=== PATIENT | male | born 1950 | race Two or more races ===

== ENCOUNTER 2023-07-30 15:50 | Inpatient (IN) | payer MEDICARE, OTHER ==
[~2023-07-30] VITALS: Ht 175.3 cm; Wt 73.9 kg
[2023-07-30] MEDS ORDERED: IV NORMAL SALINE 1000 ML BAG IV ONE (16:15)
[2023-07-30 16:27] LABS: BASOPHILS % (AUTO) 0.6 % (0.0-2.0); EOSINOPHILS % (AUTO) 0.3 % (0.0-7.0); HEMATOCRIT 25.4 % (36.7-47.1); HEMOGLOBIN 8.3 g/dL (12.5-16.3); LYMPHOCYTES # (AUTO) 1.5 K/uL (0.8-4.8); LYMPHOCYTES % (AUTO) 19.9 % (20.5-51.5); MEAN CORPUSCULAR HEMOGLOBIN 30.5 uug (23.8-33.4); MEAN CORPUSCULAR HGB CONC 33 g/dL (32.5-36.3); MEAN CORPUSCULAR VOLUME 93.1 fL (73.0-96.2); MONOCYTES # (AUTO) 0.5 K/uL (0.1-1.30); MONOCYTES % (AUTO) 7.3 % (0.0-11.0); NEUTROPHILS # (AUTO) 5.3 K/uL (1.8-8.9); NEUTROPHILS % (AUTO) 71.9 % (38.5-71.5); PLATELET COUNT (AUTO) 255 K/uL (152-348); RED BLOOD CELL COUNT(AUTO) 2.73 MIL/uL (4.06-5.63); RED CELL DISTRIBUTION WIDTH 15.2 % (12.1-16.2); WHITE BLOOD COUNT (AUTO) 7.3 K/uL (3.6-10.2)
[2023-07-30 16:41] LABS: DIFFERENTIAL COMMENT 1
[2023-07-30 16:56] LABS: CALCIUM 8.6 mg/dL (8.5-10.1); CARBON DIOXIDE 17 mmol/L (21-32); CHLORIDE 104 mmol/L (98-107); CREATININE 4.5 mg/dL (0.6-1.3); GLUCOSE 220 mg/dL (74-106); NT-PRO BNP 5588 pg/mL (0-125); POTASSIUM 3.6 mmol/L (3.5-5.1); SODIUM SERUM 137 mmol/L (136-145)
[2023-07-30 16:59] LABS: UREA NITROGEN, BLOOD 82 mg/dL (7-18)
[2023-07-30] MEDS ORDERED: DEXTROSE 50% 50 ML DISP.SYRIN IV PRN (18:15)
[2023-07-30] MEDS ORDERED: ONDANSETRON 4 MG/2 ML VIAL IV PRN (18:15)
[2023-07-30] MEDS ORDERED: IV NS 1000 ML 1,000 ML IV PRN (18:15)
[2023-07-30 21:00] VITALS: BP 161/74; TEMP 97.9; O2SAT 99
[2023-07-30] MEDS: BLOOD SUGAR DIAGNOSTIC 1 EACH STRIP VI SCH (21:57)
[2023-07-30] MEDS: ACETAMINOPHEN 325 MG TABLET PO PRN (23:08)
[2023-07-30] MEDS: INSULIN REGULAR, HUMAN 300 UNIT/3 ML VIAL SQ PRN (23:18)
[2023-07-30] MEDS ORDERED: PANTOPRAZOLE SODIUM 40 MG VIAL IV ONE (23:30)
[2023-07-30] MEDS ORDERED: CALCIUM CARBONATE 500 MG TAB.CHEW PO PRN (23:30)
[2023-07-31 04:00] VITALS: BP 131/66; TEMP 98; O2SAT 94
[2023-07-31] MEDS: PANTOPRAZOLE SODIUM 40 MG TABLET.DR PO SCH (06:02)
[2023-07-31] MEDS: BLOOD SUGAR DIAGNOSTIC 1 EACH STRIP VI SCH ×4 (06:59→21:00)
[2023-07-31 07:55] LABS: BASOPHILS % (AUTO) 0.9 % (0.0-2.0); EOSINOPHILS # (AUTO) 0.1 K/uL (0.0-0.7); EOSINOPHILS % (AUTO) 2.5 % (0.0-7.0); HEMATOCRIT 24.4 % (36.7-47.1); HEMOGLOBIN 8.2 g/dL (12.5-16.3); LYMPHOCYTES # (AUTO) 1.7 K/uL (0.8-4.8); LYMPHOCYTES % (AUTO) 32.5 % (20.5-51.5); MEAN CORPUSCULAR HEMOGLOBIN 31.3 uug (23.8-33.4); MEAN CORPUSCULAR HGB CONC 34 g/dL (32.5-36.3); MEAN CORPUSCULAR VOLUME 93.2 fL (73.0-96.2); MONOCYTES # (AUTO) 0.5 K/uL (0.1-1.30); MONOCYTES % (AUTO) 9.3 % (0.0-11.0); NEUTROPHILS # (AUTO) 2.9 K/uL (1.8-8.9); NEUTROPHILS % (AUTO) 54.8 % (38.5-71.5); PLATELET COUNT (AUTO) 236 K/uL (152-348); RED BLOOD CELL COUNT(AUTO) 2.61 MIL/uL (4.06-5.63); WHITE BLOOD COUNT (AUTO) 5.4 K/uL (3.6-10.2)
[2023-07-31 08:16] LABS: THYROID STIMULATING HORMONE 2.233 mIU/mL (0.358-3.740)
[2023-07-31 08:18] LABS: CALCIUM 8.4 mg/dL (8.5-10.1); CARBON DIOXIDE 17 mmol/L (21-32); CHLORIDE 108 mmol/L (98-107); CREATININE 4.3 mg/dL (0.6-1.3); GLUCOSE 144 mg/dL (74-106); MAGNESIUM 2.1 mg/dL (1.8-2.4); PHOSPHOROUS 4.5 mg/dL (2.5-4.9); POTASSIUM 3.7 mmol/L (3.5-5.1); SODIUM SERUM 139 mmol/L (136-145); UREA NITROGEN, BLOOD 76 mg/dL (7-18)
[2023-07-31 08:35] LABS: DIFFERENTIAL COMMENT 1
[2023-07-31 11:44] VITALS: BP 137/89; TEMP 97.6; O2SAT 98
[2023-07-31] MEDS ORDERED: ACET325C7 PO (15:15)
[2023-07-31] MEDS ORDERED: ATOR20TA PO (15:16)
[2023-07-31] MEDS ORDERED: CLON0.1T PO (15:17)
[2023-07-31] MEDS ORDERED: CITA10SO3 PO (15:17)
[2023-07-31] MEDS ORDERED: DOCU-141 PO (15:22)
[2023-07-31] MEDS ORDERED: FERR-56 PO (15:23)
[2023-07-31] MEDS ORDERED: HEPA500034 SQ (15:24)
[2023-07-31] MEDS ORDERED: HYDR-894 PO (15:25)
[2023-07-31] MEDS ORDERED: INSU100V42 SQ (15:26)
[2023-07-31] MEDS ORDERED: INSU100V7 SQ (15:31)
[2023-07-31 15:35] VITALS: BP 145/83; TEMP 97.8; O2SAT 97
[2023-07-31] MEDS ORDERED: MAGN400O6 PO (15:41)
[2023-07-31] MEDS ORDERED: MELA3CAP2 PO (15:42)
[2023-07-31] MEDS ORDERED: TAMS-3 PO (15:43)
[2023-07-31] MEDS ORDERED: POLY17PO4 PO (15:44)
[2023-07-31] MEDS ORDERED: CALC500T89 PO (15:45)
[2023-07-31] MEDS ORDERED: ONDA-104 PO (15:54)
[2023-07-31] MEDS ORDERED: MIRT-73 PO (15:55)
[2023-07-31] MEDS ORDERED: Medication Not On Formulary EA (Acetaminophen (Tylenol) 650 MG) PO PRN (16:30)
[2023-07-31] MEDS ORDERED: DOCUSATE SODIUM 100 MG CAPSULE PO PRN (16:30)
[2023-07-31] MEDS ORDERED: CITALOPRAM HYDROBROMIDE 10 MG PO PRN (16:30)
[2023-07-31] MEDS: FERROUS SULFATE 325 MG TABEC PO SCH (17:36)
[2023-07-31] MEDS: CLONIDINE HCL 0.1 MG TABLET PO SCH (17:37)
[2023-07-31] MEDS: ASPIRIN EC 81 MG TABLET.DR PO SCH (17:37)
[2023-07-31] MEDS: CITALOPRAM 10 MG TABLET PO SCH (17:39)
[2023-07-31] MEDS: INSULIN REGULAR, HUMAN 300 UNIT/3 ML VIAL SQ PRN ×2 (17:42→23:36)
[2023-07-31] MEDS: NITROGLYCERIN 0.4 MG/TAB BOTTLE SL PRN ×2 (19:00→20:59)
[2023-07-31 19:15] VITALS: BP 147/80
[2023-07-31 19:20] VITALS: BP 128/76
[2023-07-31] MEDS: TAMSULOSIN HCL 0.4 MG CAP.SR.24H PO SCH (23:29)
[2023-07-31] MEDS: ATORVASTATIN 20 MG TABLET PO SCH (23:29)
[2023-07-31] MEDS: MIRTAZAPINE 15 MG TAB.RAPDIS PO SCH (23:30)
[2023-08-01] MEDS: PANTOPRAZOLE SODIUM 40 MG TABLET.DR PO SCH (06:57)
[2023-08-01] MEDS: BLOOD SUGAR DIAGNOSTIC 1 EACH STRIP VI SCH ×4 (07:01→21:38)
[2023-08-01 07:35] LABS: BASOPHILS # (AUTO) 0.1 K/UL (0.0-0.2); BASOPHILS % (AUTO) 1.3 % (0.0-2.0); EOSINOPHILS # (AUTO) 0.2 K/uL (0.0-0.7); EOSINOPHILS % (AUTO) 2.6 % (0.0-7.0); HEMATOCRIT 25.7 % (36.7-47.1); HEMOGLOBIN 8.5 g/dL (12.5-16.3); LYMPHOCYTES # (AUTO) 1.6 K/uL (0.8-4.8); LYMPHOCYTES % (AUTO) 25.4 % (20.5-51.5); MEAN CORPUSCULAR HEMOGLOBIN 30.8 uug (23.8-33.4); MEAN CORPUSCULAR HGB CONC 33 g/dL (32.5-36.3); MEAN CORPUSCULAR VOLUME 92.8 fL (73.0-96.2); MONOCYTES # (AUTO) 0.6 K/uL (0.1-1.30); MONOCYTES % (AUTO) 9.1 % (0.0-11.0); NEUTROPHILS % (AUTO) 61.6 % (38.5-71.5); PLATELET COUNT (AUTO) 256 K/uL (152-348); RED BLOOD CELL COUNT(AUTO) 2.77 MIL/uL (4.06-5.63); RED CELL DISTRIBUTION WIDTH 15.3 % (12.1-16.2); WHITE BLOOD COUNT (AUTO) 6.5 K/uL (3.6-10.2)
[2023-08-01 07:48] LABS: CARBON DIOXIDE 17 mmol/L (21-32); CHLORIDE 108 mmol/L (98-107); CREATININE 4.3 mg/dL (0.6-1.3); DIFFERENTIAL COMMENT 1; GLUCOSE 116 mg/dL (74-106); MAGNESIUM 2.2 mg/dL (1.8-2.4); PHOSPHOROUS 4.7 mg/dL (2.5-4.9); POTASSIUM 3.4 mmol/L (3.5-5.1); SODIUM SERUM 139 mmol/L (136-145); UREA NITROGEN, BLOOD 73 mg/dL (7-18)
[2023-08-01 08:30] VITALS: BP 157/74; TEMP 98; O2SAT 98
[2023-08-01] MEDS: CITALOPRAM 10 MG TABLET PO SCH (09:09)
[2023-08-01] MEDS: ISOSORBIDE MONONITRATE 30 MG TAB.SR.24H PO SCH (09:09)
[2023-08-01] MEDS: METOPROLOL TARTRATE 50 MG TABLET PO SCH ×2 (09:09→21:37)
[2023-08-01] MEDS: CLONIDINE HCL 0.1 MG TABLET PO SCH ×2 (09:10→16:10)
[2023-08-01] MEDS: ASPIRIN EC 81 MG TABLET.DR PO SCH (09:10)
[2023-08-01] MEDS: FERROUS SULFATE 325 MG TABEC PO SCH ×2 (09:10→16:22)
[2023-08-01] MEDS ORDERED: POTASSIUM CHLORIDE 10 MEQ TAB.PRT.SR PO ONE (11:20)
[2023-08-01 11:30] VITALS: BP 111/56; TEMP 97.5; O2SAT 98
[2023-08-01] MEDS: INSULIN REGULAR, HUMAN 300 UNIT/3 ML VIAL SQ PRN ×2 (11:43→16:24)
[2023-08-01 16:46] VITALS: BP 103/46; TEMP 97.4; O2SAT 100
[2023-08-01] MEDS: NITROGLYCERIN 0.4 MG/TAB BOTTLE SL PRN ×3 (18:27→22:21)
[2023-08-01 20:34] VITALS: BP 135/55; TEMP 97.2; O2SAT 99
[2023-08-01] MEDS: MIRTAZAPINE 15 MG TAB.RAPDIS PO SCH (21:00)
[2023-08-01] MEDS: ATORVASTATIN 20 MG TABLET PO SCH (21:36)
[2023-08-01] MEDS: TAMSULOSIN HCL 0.4 MG CAP.SR.24H PO SCH (21:36)
[2023-08-01] MEDS: ACETAMINOPHEN 325 MG TABLET PO PRN (22:31)
[2023-08-02 00:10] VITALS: BP 129/67; TEMP 97.3; O2SAT 98
[2023-08-02 04:25] VITALS: BP 151/68; TEMP 97.4; O2SAT 98
[2023-08-02] MEDS: BLOOD SUGAR DIAGNOSTIC 1 EACH STRIP VI SCH ×4 (06:36→21:16)
[2023-08-02] MEDS: PANTOPRAZOLE SODIUM 40 MG TABLET.DR PO SCH (06:36)
[2023-08-02 07:50] LABS: BASOPHILS % (AUTO) 0.7 % (0.0-2.0); EOSINOPHILS # (AUTO) 0.1 K/uL (0.0-0.7); EOSINOPHILS % (AUTO) 2.7 % (0.0-7.0); HEMOGLOBIN 8.2 g/dL (12.5-16.3); LYMPHOCYTES # (AUTO) 1.3 K/uL (0.8-4.8); LYMPHOCYTES % (AUTO) 27.2 % (20.5-51.5); MEAN CORPUSCULAR HEMOGLOBIN 30.2 uug (23.8-33.4); MEAN CORPUSCULAR HGB CONC 33 g/dL (32.5-36.3); MEAN CORPUSCULAR VOLUME 92.6 fL (73.0-96.2); MONOCYTES # (AUTO) 0.5 K/uL (0.1-1.30); MONOCYTES % (AUTO) 10.4 % (0.0-11.0); NEUTROPHILS # (AUTO) 2.9 K/uL (1.8-8.9); PLATELET COUNT (AUTO) 215 K/uL (152-348); RED CELL DISTRIBUTION WIDTH 14.9 % (12.1-16.2); WHITE BLOOD COUNT (AUTO) 4.8 K/uL (3.6-10.2)
[2023-08-02 07:54] LABS: DIFFERENTIAL COMMENT 1
[2023-08-02 08:00] VITALS: BP 149/59; TEMP 98.7; O2SAT 99
[2023-08-02] MEDS: INSULIN REGULAR, HUMAN 300 UNIT/3 ML VIAL SQ PRN ×4 (08:08→21:21)
[2023-08-02 08:19] LABS: CALCIUM 8.2 mg/dL (8.5-10.1); CARBON DIOXIDE 17 mmol/L (21-32); CHLORIDE 105 mmol/L (98-107); CREATININE 4.8 mg/dL (0.6-1.3); GLUCOSE 270 mg/dL (74-106); MAGNESIUM 2.1 mg/dL (1.8-2.4); POTASSIUM 3.9 mmol/L (3.5-5.1); SODIUM SERUM 136 mmol/L (136-145); UREA NITROGEN, BLOOD 78 mg/dL (7-18)
[2023-08-02] MEDS: ASPIRIN EC 81 MG TABLET.DR PO SCH (08:59)
[2023-08-02] MEDS: FERROUS SULFATE 325 MG TABEC PO SCH ×2 (08:59→16:29)
[2023-08-02] MEDS: ISOSORBIDE MONONITRATE 30 MG TAB.SR.24H PO SCH (09:00)
[2023-08-02] MEDS: ACETAMINOPHEN 325 MG TABLET PO PRN (09:00)
[2023-08-02] MEDS: CITALOPRAM 10 MG TABLET PO SCH (09:00)
[2023-08-02] MEDS: CLONIDINE HCL 0.1 MG TABLET PO SCH ×2 (09:00→16:29)
[2023-08-02] MEDS: METOPROLOL TARTRATE 50 MG TABLET PO SCH ×2 (09:01→21:18)
[2023-08-02] MEDS: REMEDY ESSENTIAL ZINC PASTE 113 GM TP PRN (09:01)
[2023-08-02 11:30] VITALS: BP 105/52; TEMP 97.9; O2SAT 100
[2023-08-02] MEDS ORDERED: ISOSORBIDE MONONITRATE 30 MG TAB.SR.24H PO ONE (11:42)
[2023-08-02 16:25] VITALS: BP 101/47; TEMP 98.3; O2SAT 99
[2023-08-02 20:36] VITALS: BP 111/55; TEMP 98.4; O2SAT 99
[2023-08-02] MEDS: TAMSULOSIN HCL 0.4 MG CAP.SR.24H PO SCH (21:10)
[2023-08-02] MEDS: ATORVASTATIN 20 MG TABLET PO SCH (21:10)
[2023-08-02] MEDS: MIRTAZAPINE 15 MG TAB.RAPDIS PO SCH (21:11)
[2023-08-02] MEDS: HEPARIN SODIUM,PORCINE 5,000 UNITS/ML VIAL SQ SCH (21:16)
[2023-08-03 00:38] VITALS: BP 110/52; TEMP 98; O2SAT 100
[2023-08-03 05:19] VITALS: BP 146/75; TEMP 97.9; O2SAT 100
[2023-08-03] MEDS: PANTOPRAZOLE SODIUM 40 MG TABLET.DR PO SCH (06:37)
[2023-08-03] MEDS: BLOOD SUGAR DIAGNOSTIC 1 EACH STRIP VI SCH ×2 (06:38→11:27)
[2023-08-03 06:54] LABS: BASOPHILS # (AUTO) 0.1 K/UL (0.0-0.2); BASOPHILS % (AUTO) 0.9 % (0.0-2.0); EOSINOPHILS # (AUTO) 0.2 K/uL (0.0-0.7); EOSINOPHILS % (AUTO) 3.9 % (0.0-7.0); HEMATOCRIT 25.4 % (36.7-47.1); HEMOGLOBIN 8.4 g/dL (12.5-16.3); LYMPHOCYTES # (AUTO) 1.6 K/uL (0.8-4.8); LYMPHOCYTES % (AUTO) 24.5 % (20.5-51.5); MEAN CORPUSCULAR HEMOGLOBIN 30.8 uug (23.8-33.4); MEAN CORPUSCULAR HGB CONC 33 g/dL (32.5-36.3); MEAN CORPUSCULAR VOLUME 93.4 fL (73.0-96.2); MONOCYTES # (AUTO) 0.5 K/uL (0.1-1.30); MONOCYTES % (AUTO) 7.6 % (0.0-11.0); NEUTROPHILS # (AUTO) 4.1 K/uL (1.8-8.9); NEUTROPHILS % (AUTO) 63.1 % (38.5-71.5); PLATELET COUNT (AUTO) 242 K/uL (152-348); RED BLOOD CELL COUNT(AUTO) 2.72 MIL/uL (4.06-5.63); RED CELL DISTRIBUTION WIDTH 15.3 % (12.1-16.2); WHITE BLOOD COUNT (AUTO) 6.4 K/uL (3.6-10.2)
[2023-08-03 07:11] LABS: DIFFERENTIAL COMMENT 1
[2023-08-03 07:13] LABS: CALCIUM 8.1 mg/dL (8.5-10.1); CARBON DIOXIDE 18 mmol/L (21-32); CHLORIDE 104 mmol/L (98-107); GLUCOSE 160 mg/dL (74-106); MAGNESIUM 2.1 mg/dL (1.8-2.4); POTASSIUM 3.6 mmol/L (3.5-5.1); SODIUM SERUM 135 mmol/L (136-145)
[2023-08-03 07:27] LABS: UREA NITROGEN, BLOOD 81 mg/dL (7-18)
[2023-08-03] MEDS: INSULIN REGULAR, HUMAN 300 UNIT/3 ML VIAL SQ PRN ×2 (07:57→11:28)
[2023-08-03] MEDS ORDERED: ISOSORBIDE MONONITRATE 60 MG TAB.SR.24H PO SCH (09:00)
[2023-08-03] MEDS: CITALOPRAM 10 MG TABLET PO SCH (09:26)
[2023-08-03] MEDS: ASPIRIN EC 81 MG TABLET.DR PO SCH (09:26)
[2023-08-03] MEDS: FERROUS SULFATE 325 MG TABEC PO SCH (09:27)
[2023-08-03] MEDS: METOPROLOL TARTRATE 50 MG TABLET PO SCH (09:27)
[2023-08-03] MEDS: CLONIDINE HCL 0.1 MG TABLET PO SCH (09:27)
[2023-08-03] MEDS: ACETAMINOPHEN 325 MG TABLET PO PRN (09:28)
[2023-08-03] MEDS: REMEDY ESSENTIAL ZINC PASTE 113 GM TP PRN (09:28)
[2023-08-03] MEDS: HEPARIN SODIUM,PORCINE 5,000 UNITS/ML VIAL SQ SCH (09:34)
[2023-08-03 12:02] VITALS: BP 102/54; TEMP 97.7; O2SAT 98
== END 2023-08-03 14:25 | disposition short-term general hospital (02) | DRG 683 ==
LOC: ER 15:53 → UNDOADMIN 19:38 → TRANSITION 19:38 → MEDSURG3 20:17 → TELE3 08-01 08:06
PROVIDERS: ADMIT Nurse Practitioner Family; ATTEND Nurse Practitioner Family
DX: N17.9 Acute kidney failure, unspecified (principal); I13.2 Hypertensive heart and chronic kidney disease with heart failure and with stage 5 chronic kidney disease, or end stage renal disease; I50.32 Chronic diastolic (congestive) heart failure; I25.110 Atherosclerotic heart disease of native coronary artery with unstable angina pectoris; N18.5 Chronic kidney disease, stage 5; Z89.511 Acquired absence of right leg below knee; E11.22 Type 2 diabetes mellitus with diabetic chronic kidney disease; E11.51 Type 2 diabetes mellitus with diabetic peripheral angiopathy without gangrene; N40.0 Benign prostatic hyperplasia without lower urinary tract symptoms; Z89.612 Acquired absence of left leg above knee; N25.0 Renal osteodystrophy; D63.8 Anemia in other chronic diseases classified elsewhere; I25.2 Old myocardial infarction; I45.10 Unspecified right bundle-branch block; Z93.3 Colostomy status
CPT/HCPCS: 36415; 71045; 76770; 83605; 83735; 84100; 84443; 84484; 85025; 93005; 93307; A4606; A4663; C9113; G0378; J1644; J1815; J7040